=== PATIENT | female | born 1970 | race Caucasian/White ===

== ENCOUNTER → 2019-06-27 | Outpatient (CLI) | payer OTHER ==
[2019-06-27 11:45] LABS: BASOPHIL % 0.6 % (0-2); PLATELET COUNT 334 x10^3mcL (130-400)
[2019-06-27 11:46] LABS: RED CELL DISTRIBUTION WIDTH 15.5 % (11.5-14.5)
[2019-06-27 12:10] LABS: ALBUMIN 3.4 g/dL (3.4-5.0); ALKALINE PHOSPHATASE 76 U/L (46-116); ALT/SGPT 12 U/L (14-59); AST/SGOT 11 U/L (15-37); BILIRUBIN DIRECT 0.12 mg/dL (0.0-0.2); BILIRUBIN TOTAL 0.3 mg/dL (0.20-1.00); CALCIUM 8.2 mg/dL (8.5-10.1); CARBON DIOXIDE 26.3 mmol/L (21-32); CHLORIDE SERUM 105 mmol/L (98-107); CHOLESTEROL 157 mg/dL (<200); CREATININE SERUM 0.6 mg/dL (0.6-1.0); GFR1 > 60 mL/min; GLUCOSE SERUM 84 mg/dL (74-106); POTASSIUM SERUM 3.7 mmol/L (3.5-5.1); SODIUM SERUM 140 mmol/L (136-145); TOTAL PROTEIN, SERUM 7.3 g/dL (6.4-8.2); TRIGLYCERIDES 91 mg/dL (<150)
[2019-06-27 12:15] LABS: CHOLESTEROL/HDL RATIO 2.5; HDL CHOLESTEROL 63 mg/dL (40-60)
== END | disposition home or self-care (01) ==
LOC: RD 11:11
PROVIDERS: Internal Medicine
DX: Z00.00 Encounter for general adult medical examination without abnormal findings (principal); M17.0 Bilateral primary osteoarthritis of knee
CPT/HCPCS: 86431

== ENCOUNTER 2019-07-01 22:35 | Emergency (ER) | payer OTHER ==
[~2019-07-01] VITALS: Ht 157.5 cm; Wt 73.9 kg
[2019-07-01 22:45] VITALS: BP 121/78; Ht 157.5 cm; Wt 73.9 kg
== END 2019-07-02 01:14 | disposition home or self-care (01) ==
LOC: ED 22:35
DX: M79.671 Pain in right foot (principal); R20.0 Anesthesia of skin; R20.2 Paresthesia of skin; R22.41 Localized swelling, mass and lump, right lower limb; L53.9 Erythematous condition, unspecified; Z88.6 Allergy status to analgesic agent

== ENCOUNTER → 2019-07-22 | Outpatient (CLI) | payer OTHER ==
[2019-07-22 12:46] LABS: BASOPHIL % 0.4 % (0-2); PLATELET COUNT 376 x10^3mcL (130-400)
[2019-07-22 12:57] LABS: RED CELL DISTRIBUTION WIDTH 16.3 % (11.5-14.5)
[2019-07-22 13:20] LABS: ALBUMIN 3.5 g/dL (3.4-5.0); ALKALINE PHOSPHATASE 81 U/L (46-116); ALT/SGPT 16 U/L (14-59); AST/SGOT 14 U/L (15-37); BILIRUBIN TOTAL 0.2 mg/dL (0.20-1.00); CALCIUM 8.5 mg/dL (8.5-10.1); CARBON DIOXIDE 28.3 mmol/L (21-32); CHLORIDE SERUM 104 mmol/L (98-107); CREATININE SERUM 0.6 mg/dL (0.6-1.0); GFR1 > 60 mL/min; GLUCOSE SERUM 79 mg/dL (74-106); POTASSIUM SERUM 4.2 mmol/L (3.5-5.1); SODIUM SERUM 140 mmol/L (136-145); TOTAL PROTEIN, SERUM 7.5 g/dL (6.4-8.2)
== END | disposition home or self-care (01) ==
LOC: LB 12:00
PROVIDERS: Obstetrics & Gynecology
DX: Z01.419 Encounter for gynecological examination (general) (routine) without abnormal findings (principal)

== ENCOUNTER 2019-09-02 05:57 | Day surgery (SDC) | payer OTHER ==
[2019-08-31 15:42] LABS: BASOPHIL % 0.4 % (0-2); PLATELET COUNT 383 x10^3mcL (130-400)
[2019-08-31 15:45] LABS: RED CELL DISTRIBUTION WIDTH 18.2 % (11.5-14.5)
[2019-08-31 15:48] LABS: CALCIUM 8.1 mg/dL (8.5-10.1); CARBON DIOXIDE 26.4 mmol/L (21-32); CHLORIDE SERUM 104 mmol/L (98-107); CREATININE SERUM 0.7 mg/dL (0.6-1.0); GFR1 > 60 mL/min; GLUCOSE SERUM 107 mg/dL (74-106); SODIUM SERUM 140 mmol/L (136-145)
[~2019-09-02] VITALS: Ht 157.5 cm; Wt 69.8 kg
[2019-09-02 06:23] VITALS: BP 135/76
[2019-09-02 12:50] VITALS: BP 120/71
== END 2019-09-02 10:30 | disposition home or self-care (01) ==
LOC: DS 05:57 → OR 07:30 → DS 10:30
PROVIDERS: Obstetrics & Gynecology
DX: N95.0 Postmenopausal bleeding (principal); I12.9 Hypertensive chronic kidney disease with stage 1 through stage 4 chronic kidney disease, or unspecified chronic kidney disease; E11.22 Type 2 diabetes mellitus with diabetic chronic kidney disease; N18.9 Chronic kidney disease, unspecified; J45.909 Unspecified asthma, uncomplicated; K21.9 Gastro-esophageal reflux disease without esophagitis; I25.10 Atherosclerotic heart disease of native coronary artery without angina pectoris; D64.9 Anemia, unspecified; Z98.84 Bariatric surgery status; Z98.891 History of uterine scar from previous surgery; Z98.51 Tubal ligation status; Z98.890 Other specified postprocedural states; Z86.73 Personal history of transient ischemic attack (TIA), and cerebral infarction without residual deficits
CPT/HCPCS: J0690; J1170; J2250; J3010

== ENCOUNTER → 2020-08-22 | Outpatient (CLI) | payer OTHER | END | disposition home or self-care (01) | LOC: RD 16:45 | PROVIDERS: ATTEND Internal Medicine | DX: M25.521 Pain in right elbow (principal) ==

== ENCOUNTER 2020-08-27 16:37 | Emergency (ER) | payer OTHER ==
[~2020-08-27] VITALS: Ht 157.5 cm; Wt 80.7 kg
[2020-08-27 17:03] VITALS: Ht 157.5 cm; Wt 80.7 kg
[2020-08-27 19:36] VITALS: BP 144/88
== END 2020-08-27 19:36 | disposition home or self-care (01) ==
LOC: ED 16:37
DX: S59.801A Other specified injuries of right elbow, initial encounter (principal); Z98.84 Bariatric surgery status; Z88.6 Allergy status to analgesic agent; X58.XXXA Exposure to other specified factors, initial encounter; Y93.89 Activity, other specified; Y92.89 Other specified places as the place of occurrence of the external cause; Y99.8 Other external cause status
CPT/HCPCS: J7512

== ENCOUNTER → 2020-08-29 | Outpatient (CLI) | payer OTHER | END | disposition home or self-care (01) | LOC: RD 16:50 | PROVIDERS: ATTEND Internal Medicine | PROC: BP2 Imaging, Non-Axial Upper Bones, Computerized Tomography (CT Scan) (ICD-10-PCS; principal; 2020-08-29) | DX: M25.521 Pain in right elbow (principal) ==

== ENCOUNTER 2020-08-31 20:00 | Emergency (ER) | payer OTHER ==
[~2020-08-31] VITALS: Ht 157.5 cm; Wt 78.9 kg
[2020-08-31 20:36] VITALS: Ht 157.5 cm; Wt 78.9 kg
[2020-08-31 22:22] VITALS: BP 122/94
== END 2020-08-31 22:22 | disposition home or self-care (01) ==
LOC: ED 20:00
DX: M25.521 Pain in right elbow (principal); Z88.6 Allergy status to analgesic agent; Z98.84 Bariatric surgery status

== ENCOUNTER → 2020-09-13 | Outpatient (CLI) | payer OTHER | END | disposition home or self-care (01) | LOC: MI 11:07 | PROVIDERS: ATTEND Orthopaedic Surgery | PROC: BP3 Imaging, Non-Axial Upper Bones, Magnetic Resonance Imaging (MRI) (ICD-10-PCS; principal; 2020-09-13) | DX: M25.521 Pain in right elbow (principal) ==

== ENCOUNTER → 2020-09-22 | Outpatient (CLI) | payer OTHER ==
[2020-09-22 14:06] LABS: BASOPHIL % 0.5 % (0.2-1.3); PLATELET COUNT 315 x10^3mcL (179-408)
[2020-09-22 14:21] LABS: RED CELL DISTRIBUTION WIDTH 17.2 % (12.3-17.7)
[2020-09-22 14:46] LABS: C REACTIVE PROTEIN 1.5 mg/dL (<=0.9); CALCIUM 8.9 mg/dL (8.5-10.1); CARBON DIOXIDE 28.1 mmol/L (21-32); CHLORIDE SERUM 108 mmol/L (98-107); CREATININE SERUM 0.7 mg/dL (0.6-1.0); GFR1 > 60 mL/min; GLUCOSE SERUM 72 mg/dL (74-106); POTASSIUM SERUM 3.9 mmol/L (3.5-5.1); SODIUM SERUM 145 mmol/L (136-145)
[2020-09-22 16:13] LABS: ERYTHROCYTE SED RATE 18 mm/hr (0-30)
[2020-09-24 09:05] LABS: RHEUMATOID ARTHRITIS FACTOR <10.0 IU/mL (0.0-13.9)
== END ==
LOC: LB 08:41
PROVIDERS: ATTEND Orthopaedic Surgery
DX: M25.521 Pain in right elbow (principal)
CPT/HCPCS: 86200; 86431

== ENCOUNTER → 2020-11-10 | Outpatient (CLI) | payer OTHER ==
[2020-11-10 10:07] LABS: PLATELET COUNT 312 x10^3mcL (179-408)
[2020-11-10 10:19] LABS: RED CELL DISTRIBUTION WIDTH 16.8 % (12.3-17.7)
[2020-11-10 10:26] LABS: C REACTIVE PROTEIN 0.8 mg/dL (<=0.9); CALCIUM 8.6 mg/dL (8.5-10.1); CARBON DIOXIDE 32.3 mmol/L (21-32); CHLORIDE SERUM 106 mmol/L (98-107); CREATININE SERUM 0.7 mg/dL (0.6-1.0); GFR1 > 60 mL/min; GLUCOSE SERUM 90 mg/dL (74-106); POTASSIUM SERUM 4.4 mmol/L (3.5-5.1); SODIUM SERUM 139 mmol/L (136-145); URIC ACID 3.9 mg/dL (2.6-6.0)
[2020-11-10 11:43] LABS: MONOCYTE 6 % (0-7); SEGMENTED NEUTROPHILS 50 % (37-75)
[2020-11-10 11:45] LABS: rbc morphology (normal/abnorm) NORMAL (NORMAL)
[2020-11-10 12:26] LABS: ERYTHROCYTE SED RATE 19 mm/hr (0-30)
== END | disposition home or self-care (01) ==
LOC: LB 09:25
DX: E06.9 Thyroiditis, unspecified (principal); M79.7 Fibromyalgia; M45.9 Ankylosing spondylitis of unspecified sites in spine; M06.9 Rheumatoid arthritis, unspecified; Z79.899 Other long term (current) drug therapy
CPT/HCPCS: 86431